=== PATIENT | female | born 1990 | race Asian ===

== ENCOUNTER 2020-04-08 17:25 | Emergency (ER) | payer OTHER ==
--- NOTE | 2020-04-08 18:07 | ED Physician Documentation ---
PD HPI CHEST PAIN - Stated complaint Stated Complaint: KRISTINA CHRISTIANSON - Chief complaint Chief Complaint: Resp - History obtained from History obtained from: Patient - Additional information Additional information: For the last 2 weeks she has had intermittent chest tightness. It does get worse with light activity but not exercise. Sometimes over especially over the last few days she has had bouts of crying with it and feeling hopeless. She saw her counselor and felt like it was anxiety. She also talked with her doctor who told her it was not Covid so she did not need to be evaluated. She is short of breath when she gets it. She denies pedal edema or calf pain. No family history of DVT, PE, heart disease. No personal history of those either. No risk factors, no hypertension, smoking. No cholesterol issues. Pain last for minutes or hours at a time. She denies suicidal or homicidal ideation Review of Systems Ten Systems: 10 systems reviewed and negative Constitutional: denies: Fever, Chills Ears: reports: Reviewed and negative Nose: reports: Reviewed and negative Throat: reports: Reviewed and negative Cardiac: reports: Chest pain / pressure. denies: Palpitations, Pedal edema, Calf pain Respiratory: reports: Dyspnea. denies: Cough, Hemoptysis, Wheezing PD PAST MEDICAL HISTORY - Present Medications Home Medications: Ambulatory Orders Medication Instructions Recorded Confirmed Alprazolam [Xanax] 0.25 mg PO TID PRN #10 tablet 04/08/20 - Allergies Allergies/Adverse Reactions: Allergies Allergy/AdvReac Type Severity Reaction Status Date / Time No Known Drug Allergies Allergy Verified 04/08/20 17:34 PD ED PE NORMAL - Vitals Vital signs reviewed: Yes - General General: Alert and oriented X 3, No acute distress - HEENT HEENT: PERRL, EOMI - Neck Neck: Supple, no meningeal sign, No bony TTP - Cardiac Cardiac: RRR, No murmur - Respiratory Respiratory: No respiratory distress, Clear bilaterally - Abdomen Abdomen: Soft, Non tender - Back Back: No CVA TTP, No spinal TTP - Derm Derm: Normal color, Warm and dry - Extremities Extremities: No edema, No calf tenderness / cord - Neuro Neuro: Alert and oriented X 3, Normal speech Results - Vitals Vitals: Vital Signs - 24 hr 04/08/20 17:34 Temperature 37.1 C Heart Rate 78 Respiratory 18 Rate Blood Pressure 121/76 O2 Saturation 99 Oxygen O2 Source Room air - EKG (time done) 1745 Rate: Rate (enter#) (65) Rhythm: NSR [place]: Normal Intervals: Normal [place] QRS: Normal Ischemia: Normal ST segments - Labs Labs: Laboratory Tests 04/08/20 04/08/20 04/08/20 18:15 18:15 18:15 WBC 5.9 RBC 4.01 L Hgb 12.3 Hct 37.1 MCV 92.5 MCH 30.7 MCHC 33.2 RDW 12.1 Plt Count 225 MPV 8.7 Neut # (Auto) 3.0 Lymph # (Auto) 2.5 [place] # (Auto) 0.3 Eos # (Auto) 0.1 Baso # (Auto) 0.1 Absolute Nucleated RBC 0.00 Nucleated RBC % 0.0 Sodium 139 Potassium 3.4 L Chloride 102 Carbon Dioxide 27 Anion Gap 10.0 BUN 11 Creatinine 0.5 Estimated GFR (MDRD) 145 Glucose 128 H Calcium 9.2 Total Bilirubin 0.6 AST 16 ALT < 10 L Alkaline Phosphatase 19 L Troponin I High Sens < 2.3 L Total Protein 7.5 Albumin 4.5 Globulin 3.0 Albumin/Globulin Ratio 1.5 Lipase 32 - Rads (name of study) 1V CHEST Radiology: EMP read contemporaneously (NORMAL) PD MEDICAL DECISION MAKING - ED course ED course: 29-year-old woman with intermittent chest pain and tightness that she fully admits is likely anxiety which is corroborated by the fact that she has bouts of crying with it. She plans to see her counselor next week. We will do a cardiac work-up but pretest probability is low. She is PE RC negative. Not on control. Departure - Departure Disposition: Home, Self Care Clinical Impression: Anxiety Chest pain Qualifiers: Chest pain type: unspecified Qualified Code(s): R07.9 - Chest pain, unspecified Condition: Good Record reviewed to determine appropriate education?: Yes Instructions: ED Chest Pain NonCardiac, ED Panic Attack Prescriptions: Alprazolam [Xanax] 0.25 mg PO TID PRN #10 tablet PRN Reason: Anxiety Comments: Follow-up with a counselor next week as scheduled. Also your primary care physician as soon as possible. Return if worsening. Do not drink or drive while taking the prescription medication.
[2020-04-08 18:21] LABS: BASOPHILS # (AUTO) 0.1 10^3/uL (0.0-0.1); BASOPHILS % (AUTO) 0.8 %; EOSINOPHILS # (AUTO) 0.1 10^3/uL (0.0-0.7); EOSINOPHILS % (AUTO) 1.2 %; HGB - HEMOGLOBIN 12.3 g/dL (12.0-16.0); LYMPHOCYTES # (AUTO) 2.5 10^3/uL (1.5-3.5); LYMPHOCYTES % (AUTO) 41.7 %; MEAN CORPUSCULAR HEMOGLOBIN 30.7 pg (27.0-31.0); MEAN CORPUSCULAR HGB CONC 33.2 g/dL (32.0-36.0); MEAN CORPUSCULAR VOLUME 92.5 fL (81.0-99.0); MEAN PLATELET VOLUME 8.7 fL (7.9-10.8); MONOCYTES # (AUTO) 0.3 10^3/uL (0.0-1.0); MONOCYTES % (AUTO) 5.3 %; NEUTROPHILS % (AUTO) 50.7 %; PLT - PLATELET COUNT 225 10^3/uL (130-450); RED BLOOD COUNT 4.01 10^6/uL (4.20-5.40); RED CELL DISTRIBUTION WIDTH 12.1 % (12.0-15.0); WHITE BLOOD COUNT 5.9 x10^3/uL (4.8-10.8)
--- NOTE | 2020-04-08 18:25 | XRAY Report ---
PROCEDURE: Chest 1 View X-Ray INDICATIONS: Chest Pain TECHNIQUE: One view of the chest was acquired. COMPARISON: None FINDINGS: Surgical changes and devices: None. Lungs and pleura: No pleural effusions or pneumothorax. Lungs are clear. Mediastinum: Mediastinal contours appear normal. Heart size is normal. Bones and chest wall: No suspicious bony lesions. Overlying soft tissues appear unremarkable. IMPRESSION: No acute process. Reviewed by: Seda Holm MD on 04/08/2020 6:24 PM [facility] Approved by: Seda Holm MD on 04/08/2020 6:24 PM [facility] Station ID: [id number]
[2020-04-08 18:34] LABS: ALBUMIN 4.5 g/dL (3.2-5.5); ALBUMIN/GLOBULIN RATIO 1.5 (1.0-2.2); ALKALINE PHOSPHATASE 19 IU/L (42-121); ALT ALANINE AMINOTRANSFERASE < 10 IU/L (10-60); AST ASPARTATE AMINOTRANSFERASE 16 IU/L (10-42); BILIRUBIN,TOTAL 0.6 mg/dL (0.2-1.0); BUN - BLOOD UREA NITROGEN 11 mg/dL (6-20); CALCIUM 9.2 mg/dL (8.5-10.3); CARBON DIOXIDE - CO2 27 mmol/L (21-32); CHLORIDE 102 mmol/L (101-111); CREATININE 0.5 mg/dL (0.4-1.0); GLUCOSE 128 mg/dL (70-100); LIPASE 32 U/L (22-51); SODIUM 139 mmol/L (135-145); TOTAL PROTEIN 7.5 g/dL (6.7-8.2)
[2020-04-08 19:09] VITALS: BP 100/62
== END 2020-04-08 19:14 | disposition home or self-care (01) ==
LOC: ED 17:25
DX: F41.9 Anxiety disorder, unspecified (principal); R07.89 Other chest pain
CPT/HCPCS: 36415; 71045; 80053; 83690; 84484; 85025; 93005; 99284